=== PATIENT | male | born 1975 | race Caucasian/White ===

== ENCOUNTER 2017-06-25 21:01 | Emergency (ER) | payer SELFPAY, MEDICAID | END 2017-06-25 23:09 | disposition left against medical advice (07) | LOC: FTE 23:09 | DX: Z53.21 Procedure and treatment not carried out due to patient leaving prior to being seen by health care provider (principal) ==

== ENCOUNTER 2017-06-26 16:23 | Emergency (ER) | payer MEDICARE, MEDICAID | END 2017-06-26 17:29 | disposition home or self-care (01) | LOC: FTE 16:23 | DX: S00.81XA Abrasion of other part of head, initial encounter (principal); V49.50XA Passenger injured in collision with unspecified motor vehicles in traffic accident, initial encounter | CPT/HCPCS: 99283 ==

== ENCOUNTER 2018-11-18 13:32 | Emergency (ER) | payer MEDICARE, MEDICAID | END 2018-11-18 14:45 | disposition home or self-care (01) | LOC: E/R 14:45 | DX: R05 Cough (principal) | CPT/HCPCS: 71045; 99283 ==